=== PATIENT | male | born 1960 | race Caucasian/White ===

== ENCOUNTER → 2022-02-24 | Outpatient (CLI) | payer SELFPAY ==
--- NOTE | 2022-02-24 16:43 | CT_ITS ---
STUDY: CT RIGHT LOWER EXTREMITY WITHOUT CONTRAST REASON FOR EXAM: Right knee osteoarthritis, surgical planning. TECHNIQUE: Transaxial CT imaging of the lower extremity was performed. Coronal and sagittal images were reformatted. Individualized dose optimization techniques were used for this CT. COMPARISON: None. FINDINGS: Knee: There are marginal osteophytes, mild subchondral eburnation and joint space narrowing of the medial femorotibial compartment (coronal reconstruction 35). There are small marginal osteophytes of the lateral femorotibial compartment with preservation of joint space. There are marginal osteophytes of the patellofemoral compartment and joint space narrowing at the medial aspect of the compartment (axial image 234). There is a small joint effusion. There is a popliteal cyst (sagittal reconstruction 53). There is mild vascular calcification. Hip: There is preservation of joint space. Ankle: Normal tibiotalar, posterior subtalar, talonavicular and calcaneocuboid articulations. There is a very small posterior calcaneal enthesophyte. CT/Extremity Lower without Contra IMPRESSION: Right knee osteoarthritis. Electronically Signed: Tomas Clay MD at 14:54 EDT ,
[2022-02-24 17:10] LABS: Absolute Lymphocyte Count 1.94 X10^3/uL (0.83-4.51); Basophil# 0.03 X10^3/uL; Basophil% 0.4 % (0-1); Eosinophil# 0.14 X10^3/uL; Eosinophils% 2.1 % (0-5); Hematocrit 41.3 % (40-54); Lymphocyte # 1.94 X10^3/ul (0.83-4.51); Lymphocyte % 28.5 % (19-41); Mean Corp Hgb Conc 33.9 g/dL (32-36); Mean Corpuscular Hgb 29.2 pg (27.0-32.0); Mean Platelet Vol. 9.4 fl (6.2-12.0); Monocyte# 0.72 X10^3/uL; Monocyte% 10.6 % (0-10); NRBC Flagged by Analyzer 0 % (0-5); Neutrophil # 3.96 X10^3/uL (2.7-7.7); Neutrophil % 58.1 % (47-70); Platelet Count 219 K/mm3 (150-450); RBC Distribution Width CV 12.6 % (11.6-14.6); RBC Distribution Width SD 39.7 fl (35.1-43.9); White Blood Count 6.8 K/mm3 (4.4-11.0)
[2022-02-24 17:42] LABS: Anion Gap 9 (5-15); BUN 24 mg/dL (7-18); BUN/Creat Ratio 27.6 RATIO (10-20); Chloride 104 mmol/L (98-107); Creatinine, Serum 0.87 mg/dL (0.70-1.30); EST Glomerular Filtration Rate 94 mL/min (>60); Est Glom Filt Rate - Afr Amer 114 mL/min (>60); Glucose 98 mg/dL (74-106); Potassium 3.4 mmol/L (3.5-5.1); Sodium Level 140 mmol/L (136-145)
== END | disposition home or self-care (01) ==
PROVIDERS: PCP Physician Assistant; Visit Provider Orthopaedic Surgery
DX: Z01.812 Encounter for preprocedural laboratory examination (principal); M21.161 Varus deformity, not elsewhere classified, right knee; M17.11 Unilateral primary osteoarthritis, right knee; I10 Essential (primary) hypertension
CPT/HCPCS: 36415; 73700; 80048; 85025

== ENCOUNTER → 2022-03-16 | Outpatient (CLI) | payer OTHER, SELFPAY ==
--- NOTE | 2022-03-16 | KNEE_PTH ---
PATIENT: JENS MONTE LOC: [facility] U#:[id number] AGE/SX: 61/M ROOM: RE03/16/[address]: Dr. Marquez Shea MD : 1960 BED: DIS: 03/16/2022 SPEC #: [id number] RECD: 03/16/22 14:56 STATUS: CHAPARRO RELona #: [id number] JENNIFER: 03/16/22 00:[address]: Marquez Shea DEPT: SURGICAL PATHOLOGY RECD BY: Chris Mack ENTERED: 03/17/22 10:14 SP TYPE: TOTAL KNEE OTHR DR: YOSELIN Soni [facility] Tissues: Knee, NOS Procedures: Decalcification bone/plaque Surgery Specimen Level IV HEADER OPERATION: Right total knee arthroplasty PRE-OP DIAGNOSIS: Grade 4 post-traumatic arthritis TISSUE SUBMITTED: Bone and soft tissue right knee MICROSCOPIC DIAGNOSIS Bone and soft tissue, right knee, total knee replacement/resection: Pieces of bone with degenerative osteoarthritic changes. Fibroadipose tissue, fibroconnective tissue and reactive synovial tissue. SJ:mira 03/20/2022 MICROSCOPIC DESCRIPTION Slides are reviewed. GROSS DESCRIPTION Received is one container designated bone and soft tissue right knee. The specimen consists of multiple fragments of hernandez-yellow bone measuring in aggregate 15 x 15 x 1.5 cm. Also in the specimen container are multiple fragments of yellow-white soft tissue measuring in aggregate 8 x 5 x 2 cm. A number of bony fragments contain articular surfaces consistent with tibial plateau and femoral condyle and displaying prominent osteophyte formation, eburnation, and bone erosion. Cost Estimating Manager sections are submitted in two cassettes as follows: 1 - soft tissue, 2 - bone after decalcification. / AM:mira 03/17/2022 TC:5 [facility]: [id number], [id number]
== END | disposition home or self-care (01) ==
LOC: LABSPEC 15:09
PROVIDERS: PCP Physician Assistant; Referring Provider Orthopaedic Surgery; Visit Provider Orthopaedic Surgery
DX: M17.31 Unilateral post-traumatic osteoarthritis, right knee (principal)
CPT/HCPCS: 88305; 88311